=== PATIENT | female | born 1950 | race African-American/Black ===

== ENCOUNTER 2017-02-17 22:05 | Emergency (ER) | payer OTHER ==
[~2017-02-17] VITALS: Ht 142.2 cm; Wt 66.0 kg
[~2017-02-17 22:05] MED LIST: AMLO2.5T PO; ASPI81TA28 PO; CHOL100010 PO; COEN1CAP PO; CYAN100020 PO; CYCL10TA6 PO; DICL1GEL12 EXT; ESZO3TAB15 PO; KETO2CRE14 TOP; MISCTAB78 PO
[2017-02-17 22:09] VITALS: TEMP 37; Ht 142.2 cm; Wt 66.0 kg
--- NOTE | 2017-02-17 22:53 | EMERGENCY ROOM VISIT NOTE ---
History Report prepared by Domenic: Jenny Fernando Under the Supervision of: Dr. Lala Wharton D.O. First contact with patient: 22:27 Chief Complaint: CHEST PAIN Stated Complaint: CHEST PAIN History of Present Illness The patient is a 66 year old female who presents to the Emergency Room with complaints of constant chest pain beginning this afternoon. The patient states that the pain feels like pressure and that it radiates to her left arm. The patient also complains of shortness of breath. She denies having neck and back pain, and reports that sitting up alleviates the pain. She states that she recently had 2 deaths in her family. The patient reports that she had a heart catheterization last year. Pt denies headache, change in vision, fevers, nausea , vomiting, diarrhea, pain with urination, and melena. Review of EMR: She underwent cardiac catheterization on 03/21/2015 with nonobstructive disease. Echo in February 2016 showed normal systolic function and an LVEF of 60-65%. Source of History: patient Onset: this afternoon Position: chest Timing: constant Modifying Factors (Relieving): other (sitting up ) Associated Symptoms: + SOB, No fevers, No headache, No neck pain, No back pain, No melena Review of Systems See HPI for pertinent positives & negatives. A total of 10 systems reviewed and were otherwise negative. Past Medical & Surgical Medical Problems: (1) CEREBRAL PALSY NOS (2) DEPRESSIVE DISORDER NEC (3) MIGRAINE UNSPECIFIED W/O INTRACT MGRN W/O STATUS MIGRAINOSUS (4) Total replacement of hip Family History Diabetes mellitus FH: hypertension FHx: heart disease Gallbladder disease Social History Smoking Status: Never Smoker Alcohol Use: occasionally Drug Use: none Marital Status: Housing Status: lives alone Occupation Status: disabled Current/Historical Medications Scheduled Amlodipine Besylate (Norvasc), 2.5 MG PO QAM Aspirin (Aspirin Ec), 81 MG PO QAM Cholecalciferol (Vitamin D 1000 Unit), 1,000 INTER.UNIT PO DAILY Coenzyme Q10 (Ubidecarenone) (Co Q10), 1 CAP PO DAILY Cyanocobalamin (Vitamin B12), 1 TAB PO DAILY Ketoconazole (Ketoconazole), 1 APPLN TOP DAILY Misc Natural Products (Osteo Bi-Flex Advanced Do), 1 TAB PO QPM Scheduled PRN Cyclobenzaprine Hcl (Flexeril), 5 MG PO UD PRN for Muscle Spasms Eszopiclone (Lunesta), 3 MG PO HS PRN for Sleep Allergies Coded Allergies: Benzodiazepines (Verified Allergy, Severe, ANAPHYLAXIS, 05/09/16) Fluoxetine (Verified Allergy, Unknown, ?, 05/09/16) Paroxetine (Verified Allergy, Unknown, ?, 05/09/16) Tizanidine (Verified Allergy, Unknown, UNK, 05/09/16) Physical Exam Vital Signs Date Time Temp Pulse Resp B/P (MAP) Pulse Ox O2 Delivery O2 Flow Rate FiO2 02/18/17 02:47 82 20 138/82 96 02/18/17 01:14 89 19 178/98 97 Room Air 02/17/17 22:09 37.0 84 20 96 Room Air Physical Exam GENERAL: alert, well appearing, well nourished, no distress, non-toxic. Abnormal facies consistent with CP. EYE EXAM: normal conjunctiva, PERRL and EOM's grossly intact OROPHARYNX: no exudate, no erythema, lips, buccal mucosa, and tongue normal and mucous membranes are moist NECK: supple, no nuchal rigidity, no adenopathy, non-tender LUNGS: Clear to auscultation. Normal chest wall mechanics HEART: no murmurs, S1 normal and S2 normal CHEST: Reproducible pain on the left sternal border. ABDOMEN: abdomen soft, non-tender, normo-active bowel sounds, no masses, no rebound or guarding. BACK: Back is symmetrical on inspection and there is no deformity, no midline tenderness, no CVA tenderness. SKIN: no rashes and no bruising UPPER EXTREMITIES: upper extremities are grossly normal. LOWER EXTREMITIES: 1+ edema. NEURO EXAM: Normal sensorium, cranial nerves II-XII grossly intact, normal speech, no gross weakness of arms, no gross weakness of legs. Generalized weakness secondary to atrophy and CP. Chronic dysarthria secondary to CP. Medical Decision & Procedures Laboratory Results 02/17/17 23:06 Red Blood Count 5.58, Mean Corpuscular Volume 71.0, Mean Corpuscular Hemoglobin 23.3, Mean Corpuscular Hemoglobin Concent 32.8, Mean Platelet Volume 10.2, Neutrophils (%) (Auto) 59.3, Lymphocytes (%) (Auto) 34.3, Monocytes (%) (Auto) 4.1, Eosinophils (%) (Auto) 1.9, Basophils (%) (Auto) 0.2, Neutrophils # (Auto) 5.04, Lymphocytes # (Auto) 2.92, Monocytes # (Auto) 0.35, Eosinophils # (Auto) 0.16, Basophils # (Auto) 0.02 02/17/17 23:06 Test 02/17/17 23:06 02/18/17 01:57 White Blood Count 8.51 K/uL (4.8-10.8) Red Blood Count 5.58 M/uL (4.2-5.4) Hemoglobin 13.0 g/dL (12.0-16.0) Hematocrit 39.6 % (37-47) Mean Corpuscular Volume 71.0 fL (80-100) Mean Corpuscular Hemoglobin 23.3 pg (25-34) Mean Corpuscular Hemoglobin Concent 32.8 g/dl (32-36) Platelet Count 251 K/uL (130-400) Mean Platelet Volume 10.2 fL (7.4-10.4) Neutrophils (%) (Auto) 59.3 % Lymphocytes (%) (Auto) 34.3 % Monocytes (%) (Auto) 4.1 % Eosinophils (%) (Auto) 1.9 % Basophils (%) (Auto) 0.2 % Neutrophils # (Auto) 5.04 K/uL (1.4-6.5) Lymphocytes # (Auto) 2.92 K/uL (1.2-3.4) Monocytes # (Auto) 0.35 K/uL (0.11-0.59) Eosinophils # (Auto) 0.16 K/uL (0-0.5) Basophils # (Auto) 0.02 K/uL (0-0.2) RDW Standard Deviation 40.8 fL (36.4-46.3) RDW Coefficient of Variation 15.9 % (11.5-14.5) Immature Granulocyte % (Auto) 0.2 % Immature Granulocyte # (Auto) 0.02 K/uL (0.00-0.02) Platelet Estimate NORMAL Prothrombin Time 10.3 SECONDS (9.0-12.0) Prothromb Time International Ratio 1.0 (0.9-1.1) D-Dimer 1200 ug/L FEU (0-500) Anion Gap 9.0 mmol/L (3-11) Est Creatinine Clear Calc Drug Dose 58.5 ml/min Estimated GFR () 102.2 Estimated GFR (Non- 88.1 BUN/Creatinine Ratio 25.1 (10-20) Calcium Level 8.7 mg/dl (8.5-10.1) Total Bilirubin 0.3 mg/dl (0.2-1) Aspartate Amino Transf (AST/SGOT) 15 U/L (15-37) Alanine Aminotransferase (ALT/SGPT) 24 U/L (12-78) Alkaline Phosphatase 86 U/L (45-117) Troponin I < 0.015 ng/ml (0-0.045) Total Protein 7.2 gm/dl (6.4-8.2) Albumin 3.3 gm/dl (3.4-5.0) Globulin 3.9 gm/dl (2.5-4.0) Albumin/Globulin Ratio 0.8 (0.9-2) Bedside Troponin I < 0.030 ng/ml (0-0.045) Laboratory results per my review. Medications Administered Medications (Trade) Dose Ordered Sig/Nory Route Start Time Stop Time Status Last Admin Dose Admin Ketorolac Tromethamine (Toradol Inj) 30 mg NOW STAT IV 02/18/17 01:32 02/18/17 01:33 DC 02/18/17 01:53 30 MG Famotidine (Pepcid Tab) 20 mg NOW ONCE PO 02/18/17 02:15 02/18/17 02:16 DC 02/18/17 02:25 20 MG Ondansetron HCl (Zofran Odt) 4 mg STK-MED ONCE .ROUTE 02/18/17 02:32 02/18/17 02:33 DC 02/18/17 02:32 4 MG Morphine Sulfate (MoRPHine SULFATE INJ) 2 mg NOW STAT IM 02/18/17 02:44 02/18/17 02:45 DC 02/18/17 02:44 2 MG ECG Indication: chest pain Rate (beats per minute): 75 Rhythm: normal sinus Findings: no acute ischemic change, no ectopy, other (low voltage, normal axis , normal intervals ) ED Course 2240: The patient was evaluated in room B8. A complete history and physical exam was performed. 0045: pt awaiting CT results. 0145: Pt still c/o pain. Awaiting CT and repeat trop. 0200: pt signed out to Dr Euceda. Medical Decision Differential diagnosis: Etiologies such as cardiac ischemia, aortic dissection, pulmonary embolism, pneumonia, pneumothorax, musculoskeletal, infections, pericarditis, myocarditis , esophageal rupture, gastrointestinal, as well as others were entertained. Doubt acs given chronicity of pain and cardiac cath within last 2 years with nonobstructive CAD. Doubt pe, dissection, tamponade, effusion, infection, perf , gi bleed. More likely pt sx from stress/grief reaction and from GERD. Pt offered meds initially and refused. Pt signed out awaiting CTA chest and repeat trop which i anticipate will be negative. Discussed with pt need for close f/u with PCP and if sx persist with cardiology if all other tests tonight are negative. HEART score 2 Medication Reconcilliation Current Medication List: was personally reviewed by me Blood Pressure Screening Patient's blood pressure: Elevated blood pressure Impression Primary Impression: Chest pain Additional Impressions: Stress Cerebral palsy Scribe Attestation The scribe's documentation has been prepared under my direction and personally reviewed by me in its entirety. I confirm that the note above accurately reflects all work, treatment, procedures, and medical decision making performed by me. Departure Information Dispostion Home / Self-Care Referrals Jean Claude Bautista, [facility]. (PCP) Patient Instructions My [facility] [address] Additional Instructions Please take your regular medications as prescribed. Please follow-up with your family doctor given the episode of chest pain to assure the your not having any new or changing symptoms. All this may be related to the recent stress and possible grief reaction given the in your family, who will make sure that your symptoms are improving and that persistent which may require additional evaluation. Please monitor for any symptoms of heartburn and reflux which can contribute to chest pain also. Problem Qualifiers Primary Impression: Chest pain Chest pain type: unspecified Qualified Codes: R07.9 - Chest pain, unspecified Additional Impressions: Cerebral palsy Cerebral palsy type: unspecified type Qualified Codes: G80.9 - Cerebral palsy, unspecified
[2017-02-17 23:29] LABS: PROTHROMBIN TIME (PATIENT) 10.3 SECONDS (9.0-12.0)
[2017-02-17] MEDS ORDERED: CYCL5TAB PO (23:33)
[2017-02-17] MEDS ORDERED: CHOL100027 PO (23:33)
[2017-02-17] MEDS ORDERED: NZRCR TOP (23:35)
[2017-02-17 23:38] LABS: ALT/SGPT 24 U/L (12-78); AST/SGOT 15 U/L (15-37); BLOOD UREA NITROGEN 18 mg/dl (7-18); BUN/CREATININE RATIO 25.1 (10-20); CALCIUM 8.7 mg/dl (8.5-10.1); CARBON DIOXIDE 25 mmol/L (21-32); CHLORIDE 108 mmol/L (98-107); CREATININE 0.71 mg/dl (0.60-1.20); GLUCOSE 90 mg/dl (70-99); POTASSIUM 3.7 mmol/L (3.5-5.1); SODIUM 142 mmol/L (136-145)
[2017-02-17 23:43] LABS: ALB/GLOB RATIO 0.8 (0.9-2); ALKALINE PHOSPHATASE 86 U/L (45-117)
[2017-02-17 23:45] LABS: BASO % 0.2 %; BASO ABS # 0.02 K/uL (0-0.2); COMPLETE YES; EOS % 1.9 %; HEMATOCRIT 39.6 % (37-47); IG% 0.2 %; LYMPH % 34.3 %; LYMPH ABS # 2.92 K/uL (1.2-3.4); MEAN CORPUSCULAR HEMOGLOBIN 23.3 pg (25-34); MEAN CORPUSCULAR HGB CONC 32.8 g/dl (32-36); MEAN PLATELET VOLUME 10.2 fL (7.4-10.4); MONO % 4.1 %; NEUT % 59.3 %; PLATELET COUNT 251 K/uL (130-400); PLT ESTIMATE NORMAL; RED BLOOD COUNT 5.58 M/uL (4.2-5.4); WHITE BLOOD COUNT 8.51 K/uL (4.8-10.8)
[2017-02-17] MEDS ORDERED: OPTIRAY 320 IV PRN (23:45)
[2017-02-18] MEDS ORDERED: KETOROLAC TROMETHAMINE 30 MG/ML VIAL IV STA (01:32)
[2017-02-18] MEDS ORDERED: FAMOTIDINE IV INJ 20 MG in DEXTROSE 5% 100ML 100 ML IV STA (01:32)
[2017-02-18] MEDS ORDERED: FAMOTIDINE 20MG/102 ML D5W ONE (01:49)
[2017-02-18] MEDS ORDERED: ONDANSETRON INJ 2 MG/ML 2 ML VIAL IV STA (02:15)
[2017-02-18] MEDS ORDERED: MoRPHine SULFATE 2 MG/ML CARP IV STA (02:15)
[2017-02-18] MEDS ORDERED: FAMOTIDINE 20 MG TAB PO ONE (02:15)
[2017-02-18] MEDS ORDERED: ONDANSETRON 4MG OD TAB ONE (02:32)
[2017-02-18] MEDS ORDERED: ONDANSETRON 4MG OD TAB PO STA (02:44)
[2017-02-18] MEDS ORDERED: MoRPHine SULFATE 2 MG/ML CARP IM STA (02:44)
[2017-02-18] MEDS ORDERED: NURSING VERBAL MED ORDER ONE (02:45)
[2017-02-18 02:47] VITALS: BP 138/82; PULSE 82; O2SAT 96
--- NOTE | 2017-02-18 03:50 | EMERGENCY ROOM VISIT NOTE ---
ED Visit Note I received this patient in signout at the change of shift from Dr. Wharton, pending CTA chest and repeat troponin. This study is as below: CT chest with contrast: Compared to 10/20/15 No PE. No aortic aneurysm. Minimal bibasilar lung atelectasis. No pleural effusion or pneumothorax. No significant adenopathy. Degenerative changes of the left shoulder. Radiologist: Palak Abrams MD On reevaluation, the patient continued to complain of some discomfort. She had refused the IV Pepcid. She was given Pepcid 20 mg tablet. She did request IV pain medication however her saline lock had been discontinued. Patient was given morphine 2 mg IM and Zofran 4 mg ODT. She was discharged to the care of her and will follow-up with her primary care physician this week for reevaluation. She will return to the ER for worsening of symptoms or any medical concerns.
--- NOTE | 2017-02-18 06:58 | DIAGNOSTIC IMAGING REPORT ---
CHEST ONE VIEW PORTABLE CLINICAL HISTORY: 66 years-old Female presenting with chest pain. TECHNIQUE: Portable upright AP view of the chest was obtained. COMPARISON: 10/19/2015. FINDINGS: Cardiomediastinal silhouette normal. Mildly low lung volumes. Otherwise lungs and pleural spaces clear. Degenerative changes of the left glenohumeral joint. Upper abdomen normal. IMPRESSION: 1. No acute cardiopulmonary disease. Electronically signed by: Jonny Serrano M.D. 02/18/2017 6:57 AM Dictated Date/Time: 02/18/2017 6:56 AM
--- NOTE | 2017-02-18 07:37 | DIAGNOSTIC IMAGING REPORT ---
(CHEST FOR PE) ANGIO WITH CLINICAL HISTORY: 66 years-old Female presenting with chest pain, shortness of breath, elevated d-dimer, clinical concern for pulmonary embolus. TECHNIQUE: Multidetector CT angiography of the chest was performed after administration of intravenous contrast. 3-D volumetric and/or maximum intensity projection (MIP) images were subsequently reconstructed for review. IV contrast: 77 mL of Optiray 320. A dose lowering technique was used consistent with the principles of ALARA (as low as reasonably achievable). COMPARISON: 10/20/2015. CT DOSE (mGy.cm): The estimated cumulative dose is 638.69 mGy.cm. FINDINGS: Ed Teacher topogram: Unremarkable. Pulmonary vasculature: The study is adequate for assessment of the pulmonary vascular tree. No filling defect within the pulmonary arteries to suggest embolus. Main pulmonary artery is not enlarged. No flattening of the interventricular septum. No intracardiac intracardiac filling defect. No reflux of contrast into the hepatic veins. Remaining chest: On soft tissue windows, normal thyroid and thoracic inlet. Prominent left axillary lymph node measures 10 mm in the short axis, previously 8 mm (series 5 image 180) disease. No other evidence of enlarged lymph nodes, including in the internal mammary region. Normal aorta. Normal heart size. No pericardial or pleural effusion. Multiple nonobstructing renal calculi bilaterally. On lung windows, vibration of the lung parenchyma is limited due to respiratory motion artifact at the lung bases. Allowing for this, minimal dependent changes likely atelectasis. No other focal infiltrate or nodule. Mosaic attenuation may suggest small airways disease. Airways patent. On bone windows, degenerative changes of the left glenohumeral joint. Osseous structures otherwise within normal limits. IMPRESSION: 1. No evidence of pulmonary embolus. No acute intrathoracic pathology. 2. Isolated enlarged left axillary lymph node, minimally increased in size from 2016. This is indeterminate. Follow-up could be obtained as clinically warranted. 3. Multiple nonobstructing renal calculi bilaterally. Electronically signed by: Jonny Serrano M.D. 02/18/2017 7:35 AM Dictated Date/Time: 02/18/2017 7:15 AM
== END 2017-02-18 02:48 | disposition home or self-care (01) ==
LOC: C.EDB 22:07
DX: R07.9 Chest pain, unspecified (principal); G80.9 Cerebral palsy, unspecified; F32.9 Major depressive disorder, single episode, unspecified; F43.9 Reaction to severe stress, unspecified; K21.9 Gastro-esophageal reflux disease without esophagitis; Z96.649 Presence of unspecified artificial hip joint; I25.10 Atherosclerotic heart disease of native coronary artery without angina pectoris; Z83.3 Family history of diabetes mellitus; Z82.49 Family history of ischemic heart disease and other diseases of the circulatory system; Z79.82 Long term (current) use of aspirin; Z79.899 Other long term (current) drug therapy